=== PATIENT | male | born 1970 | race Caucasian/White ===

== ENCOUNTER 2018-06-20 17:19 | Emergency (ER) | payer MEDICAID, OTHER ==
[~2018-06-20] VITALS: Ht 180.3 cm; Wt 111.1 kg
[2018-06-20 18:39] VITALS: BP 118/97
[2018-06-20] MEDS ORDERED: HYDROcodone-ACET 10/325MG TAB PO ONE (19:15)
[2018-06-20] MEDS ORDERED: BACLOFEN 10 MG TAB PO ONE (19:15)
[2018-06-20] MEDS ORDERED: LIDOCAINE 1% HCL (LOCAL ANESTH.) INJ 20ML MDV IJ ONE (19:30)
[2018-06-20] MEDS ORDERED: cefTRIAXone SOD 1,000 MG VL IM ONE (19:30)
[2018-06-20] MEDS ORDERED: CLINDAMYCIN HCL 150 MG CAP PO ONE (19:30)
== END 2018-06-20 19:39 | disposition home or self-care (01) ==
LOC: ER 17:19
DX: L73.2 Hidradenitis suppurativa (principal); M54.2 Cervicalgia; R51 Headache; G89.29 Other chronic pain; Z88.0 Allergy status to penicillin; Z88.2 Allergy status to sulfonamides
CPT/HCPCS: 99283; J0696; J2001